=== PATIENT | female | born 1940 | race Caucasian/White ===

== ENCOUNTER → 2018-02-28 | Outpatient (CLI) | payer MEDICARE ==
[~2018-02-28] MED LIST: BIOTIN1000 MCG PO; CO-Q-10 200 MG-1 SGL PO; CRESTOR20 MG PO; EPA1000 MG PO; Ecotrin325 MG PO; GRAPE SEED25 MG PO; VITAMIN D31000 I2 PO
== END | disposition home or self-care (01) ==
LOC: RAD 14:48
DX: M99.01 Segmental and somatic dysfunction of cervical region (principal)